=== PATIENT | female | born 1955 | race Caucasian/White ===

== ENCOUNTER 2020-03-21 08:05 | Day surgery (SDC) | payer MEDICARE, OTHER ==
[2020-03-21] MEDS ORDERED: fentaNYL 100 MCG/2 ML SDV ONE (08:10)
[2020-03-21] MEDS ORDERED: Propofol 200 MG/20 ML SDV ONE (08:10)
[2020-03-21] MEDS ORDERED: Midazolam 1 MG/ML 2 ML SDV ONE (08:11)
[2020-03-21] MEDS ORDERED: Lactated Ringers 1,000 ML IV SCH (08:30)
[2020-03-21] MEDS ORDERED: Ampicillin/Sulbactam Na 3 GM in Sodium Chloride 0.9% 100 ML IV ONE (08:30)
[2020-03-21] MEDS ORDERED: Cyanocobalamin (Vitamin B12) 1,000 MCG/ML SDV IM ONE (09:00)
[2020-03-21] MEDS ORDERED: Glycopyrrolate 0.2 MG/ML 2 ML SDV IVPUSH ONE (09:15)
[2020-03-21] MEDS ORDERED: MVI, Adult with Vitamin K 10 ML, Thiamine 200 MG, Chromium/Copper/Mang/Selen/Zn 1 ML in... IV ONE ×4 (09:45)
--- NOTE | 2020-04-04 15:03 | OR ---
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 Very large gastric pouch (11 cm). 2. Widened gastrojejunostomy (4 cm). OPERATIVE PROCEDURE: Upper gastrointestinal endoscopy with biopsy of the gastric pouch for CLOtest. ANESTHESIA: IV sedation. INDICATION FOR PROCEDURE: This is a 65-year-old female status post open Sally-en-Y gastric bypass done at what is now [facility] in [place] by Dr. Barajas in 2002. Initially, she dropped down to 155 pounds. Over the last several years, she has had progressive problems with weight regain and presents now for upper endoscopy for evaluation of the gastric bypass anatomy to consider possible revision. The potential risks of the procedure including bleeding and perforation were discussed, and the patient wishes to proceed. DETAILS OF PROCEDURE: The patient was taken to the operating room and placed in a left lateral decubitus position. IV sedation was administered, after which the upper GI endoscope was passed orally through the length of the esophagus and the stomach, and from there, through the gastric pouch and through the gastrojejunostomy, roughly 20 cm into the Sally limb. Findings included normal hypopharynx, larynx, upper esophageal sphincter, and esophageal body. At the EG junction, there was no significant upward extension of the gastroesophageal junction mucosal line. The gastric pouch was noted to be quite large and measured from the esophagogastric junction to the gastrojejunostomy at 11 cm and roughly spherical in dimension. Given this, more or less a tennis ball-sized pouch. The gastrojejunostomy was also quite wide at around 4 cm. There was no significant inflammation either within the pouch or around the gastrojejunostomy, and the visualized portion of the Sally limb was otherwise unremarkable. At this point, biopsy was obtained from the gastric pouch and sent for CLOtest for H pylori. Minimal bleeding from the biopsy site was seen and the procedure concluded. The patient was taken to the recovery room in satisfactory condition. Discussion was held with the patient and a family member postprocedure. At this point, we will be considering a revisional procedure, if she would be a candidate for this. At this point, if the anatomy is such that she is getting essentially no restriction from the upper aspect of the gastric bypass, i.e., the pouch is very large and would empty quite rapidly through the large gastrojejunostomy, revisional procedure would amount to redoing of the pouch and gastrojejunostomy to make the Sally-en-Y smaller, as well as distalization of the Sally limb to create more in the way of malabsorption. Ismael David MD /[id number]
== END 2020-03-21 13:03 | disposition home or self-care (01) ==
LOC: JP.SDS 08:05
PROVIDERS: ATTEND Surgery
DX: K95.89 Other complications of other bariatric procedure (principal); K91.89 Other postprocedural complications and disorders of digestive system; R63.5 Abnormal weight gain; J45.909 Unspecified asthma, uncomplicated; K21.9 Gastro-esophageal reflux disease without esophagitis; I10 Essential (primary) hypertension; Z98.84 Bariatric surgery status; Z98.0 Intestinal bypass and anastomosis status; Z68.41 Body mass index [BMI] 40.0-44.9, adult
CPT/HCPCS: 36415; 43239; 80053; 82525; 82607; 82728; 82746; 83735; 84100; 84425; 84590; 84630; 85027; 86850; 86900; 86901; 87081; J0295; J2250; J2704; J3010; J3411; J3420; J3490; J7050; J7120